=== PATIENT | male | born 1955 | race Caucasian/White ===

== ENCOUNTER 2024-04-13 19:38 | Inpatient (IN) ==
[2024-04-13] MEDS: SODIUM CHLORIDE 0.9% 1,000 ML IV SCH (20:59)
[2024-04-13 21:17] LABS: Alanine Aminotransferase 34 U/L (7-52); Albumin Level 3.9 gm/dl (3.4-5.0); Alkaline Phosphatase 81 U/L (34-104); Anion Gap 8 (3-11); Aspartate Aminotransferase 14 U/L (13-39); BUN Creatinine Ratio 22.4 (10-20); Bilirubin Direct 0.1 mg/dl (0-0.2); Bilirubin,Total 0.3 mg/dl (0.2-1.0); Blood Urea Nitrogen 50 mg/dl (6-23); Calcium 9.1 mg/dl (8.6-10.3); Carbon Dioxide 25 mmol/L (21-32); Chloride 106 mmol/L (98-107); Creatinine Clr Calc Pharmacy 37.4 ml/min; Est GFR (African American) 34.1 ml/min; Est GFR (Non-African American) 29.4 ml/min; Glucose 106 mg/dl (70-99(Fasting)); Magnesium 1.7 mg/dl (1.7-2.4); Potassium 4.7 mmol/L (3.5-5.1); Sodium 139 mmol/L (136-145); Total Protein 6.4 gm/dl (6.0-8.3)
[2024-04-13 21:23] LABS: Base Excess VBG -2.4 mEq/L; HCO3 VBG 24 mmol/L; Oxygen Saturation VBG < 60.0 %; PCO2 VBG 45 mmHg (38-50); PO2 VBG 28 mmHg; pH VBG 7.33 (7.36-7.41)
[2024-04-13 21:23] LABS: Troponin I High Sensitivity 6.6 pg/ml (0-20)
[2024-04-13 21:36] LABS: Basophils # (auto) 0.07 K/uL (0.00-0.20); Basophils % (auto) 0.8 %; Eosinophils # (auto) 0.55 K/uL (0.00-0.50); Eosinophils % (auto) 6.7 %; Hematocrit (blood only) 30.3 % (42.0-52.0); Immature Granulocytes # (auto) 0.09 K/uL (0.01-0.20); Immature Granulocytes % (auto) 1.1 %; Lymphocytes # (auto) 2.15 K/uL (1.20-3.40); Mean Corpuscular Hemoglobin 25.2 pg (25.0-34.0); Mean Corpuscular Hgb Conc 29.7 g/dL (32.0-36.0); Mean Corpuscular Volume 84.9 fL (80.0-100.0); Mean Platelet Volume 11.3 fL (9.4-12.4); Monocytes # (auto) 0.57 K/uL (0.11-0.59); Monocytes % (auto) 6.9 %; Neutrophils # (auto) 4.83 K/uL (1.40-6.50); Neutrophils % (auto) 58.5 %; Platelet Count 285 K/uL (130-400); RDW Coefficient of Variation 19.8 % (11.5-14.5); RDW Standard Deviation 60.3 fL (36.4-46.3); Red Blood Count 3.57 M/uL (4.70-6.10); White Blood Count 8.26 K/ul (4.8-10.8)
--- NOTE | 2024-04-13 22:03 | Emergency Department Note ---
Impression & Plan Hypotension, Cognitive impairment, Acute encephalopathy, Wound of foot ED Provider Note NAME: MILADYS HURTADO AGE: 68 SEX: M : 1955 ARRIVES VIA: Walk-In INFORMANT: Patient, ED PROVIDER(S): Shoaib Harper MD CHIEF COMPLAINT: Hypotension HPI: This is a 68-year-old male presenting for hypotension. Patient states that he was recently intubated for 2 weeks at another hospital. He notes he has Buerger's disease and has ulcers on his bilateral feet. He notes that today he felt weak and was unable to do what she activities including even walking. He notes that his blood pressure 80/50 and was concerned he had sepsis. Patient otherwise reports no current shortness of breath or chest pain. ROS: See above HPI for pertinent positives & negatives. A total of 10 systems reviewed and were otherwise negative. 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 Patient recently intubated for 2 weeks at outside hospital, comes in after hypotension concern for sepsis. Will IV resuscitate with saline -Patient only requesting IV the ultrasound -Ultrasound IV, 18-gauge placed in the basilic vein on the left upper extremity -Lab work is reviewed showing anemia to 9 with a creatinine of 2.23 -Bedside echo performed at patient's request, showing normal EF, no signs of right ventricular hypertrophy, no pericardial effusion -Overall patient does appear well. He is perseverates on certain facets of his medical care including IV placement, wound culture. 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 Overall he appears well with reassuring vital signs after fluid replacement. As patient recently had intubation for unknown reasons at outside hospital, there is clinical concern for possible sepsis. -Chest Xray independently interpreted by me showing no pneumothorax, focal opacity, or pleural effusions. -Blood culture sent -Will admit for further workup as well as his hypotension initially. Differential diagnosis: Sepsis, osteomyelitis of the left foot, anemia, pneumonia ER treatment provided: See below Diagnostics interpreted by me: ECG: ECG independently interpreted by me with normal sinus rhythm, rate of 76, left axis deviation normal [place], normal QRS, normal QTc, no ST segment elevations consistent with STEMI criteria Cardiac Monitoring: An order was placed for continuous cardiac monitoring. The monitor shows a rate of 62 with sinus rhythm. Laboratory studies: As stated above and show below. Imaging studies: See below. Past Med/Surg History Problem List (Updated 04/15/24 @ 10:59 by Shoaib Harper MD) Wound of foot (Acute) Hypotension (Acute) ARNOL (acute kidney injury) Ulcer of foot Vitamin D deficiency Gait disturbance Acute encephalopathy (Acute) Cognitive impairment (Acute) Hip pain, bilateral Lumbar radiculopathy Lumbar radicular pain Lymphoma Weakness of both lower extremities Cramps of lower extremity Fatigue Diabetic neuropathy Idiopathic polyneuropathy Depression HTN (hypertension) Femoral neuropathy of right lower extremity Lumbar degenerative disc disease Surgical History S/P cervical spinal fusion History of cardiac cath History of total right knee replacement Social History Smoking Status: Unknown if ever smoked Second Hand Exposure: No; Do You Dip or Chew Tobacco: No; Tobacco Cessation Education Requested by Patient: No Hx Alcohol Use: No Hx Substance Use: No Preferred Language: Portuguese Communication Ability: Effective 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: No Beliefs That Will Affect Care: None Current Living Situation: Alone Other Information That Helps Us Care for You: No Feels Safe at Home: Yes Assistive Devices: Cane, Glasses, Hospital Bed and Walker Allergies Allergies Allergy/AdvReac Type Severity Reaction Status Date / Time No Known Allergies Allergy Verified 01/17/22 12:48 Home Meds Home Medications Medication Instructions Recorded Confirmed atorvastatin 80 mg tablet 80 mg PO HS 09/17/22 04/14/24 clonazepam 2 mg tablet 1 mg PO TID PRN Anxiety 09/17/22 04/14/24 lisinopril 20 mg tablet 20 mg PO DAILY 09/17/22 04/14/24 metformin 500 mg tablet,extended 1,000 mg PO BIDM 09/17/22 04/14/24 release 24 hr finasteride 5 mg tablet 5 mg PO DAILY 04/13/24 04/14/24 amlodipine 5 mg tablet 5 mg PO DAILY 04/14/24 04/14/24 cyclobenzaprine 10 mg tablet 10 mg PO Q8 PRN muscle spasm 04/14/24 04/14/24 dextroamphetamine-amphetamine 30 30 mg PO DAILY 04/14/24 04/14/24 mg tablet docusate sodium 100 mg capsule 100 mg PO BID 04/14/24 04/14/24 gabapentin 400 mg capsule 400 mg PO Q8 04/14/24 04/14/24 heparin (porcine) 5,000 unit/mL 5,000 unit subcut Q8H 04/14/24 04/14/24 injection syringe levetiracetam 500 mg tablet 500 mg PO Q12H 04/14/24 04/14/24 melatonin 3 mg tablet 6 mg PO HS 04/14/24 04/14/24 pantoprazole 40 mg tablet,delayed 40 mg PO DAILYBB 04/14/24 04/14/24 release quetiapine 50 mg tablet (Seroquel) 50 mg PO Q12 04/14/24 04/14/24 tamsulosin 0.4 mg capsule 0.4 mg PO HS 04/14/24 04/14/24 Previous Rx's Medication Instructions Recorded atenolol 50 mg tablet 50 mg PO DAILY #30 tabs 09/05/20 venlafaxine 150 mg 150 mg PO DAILY #30 caps 09/05/20 capsule,extended release 24 hr (Effexor XR) Wheelchair (Manual) (Manual #1 ea 10/23/21 Wheelchair) Results & Data (ED) Vital Signs Vital Signs - 24 hr 04/13/24 19:46 04/13/24 20:04 04/13/24 20:04 Temperature 36.8 C Temperature Source Oral Pulse Rate 90 Pulse Rate [Apical] 80 Respiratory Rate 20 17 Respiratory Effort / Characteristics Non-Labored Spontaneous Respiratory Depth Normal Respiratory Pattern Regular Blood Pressure 89/62 L Blood Pressure [Right Arm] 106/69 Blood Pressure Mean 71 Blood Pressure Mean [Right Arm] 81 Pulse Oximetry 98 97 97 Oxygen Delivery Method Room Air Room Air Sepsis Recent Fever Within 48 Hours Yes Sepsis New/Unexplained Change in Mental Status No Sepsis Action Taken by Nursing No Action Required 04/13/24 20:15 04/13/24 20:24 04/13/24 21:03 Temperature Temperature Source Pulse Rate 79 83 74 Pulse Rate [Apical] Respiratory Rate 28 H 21 Respiratory Effort / Characteristics Respiratory Depth Respiratory Pattern Blood Pressure 108/61 Blood Pressure [Right Arm] Blood Pressure Mean 76 Blood Pressure Mean [Right Arm] Pulse Oximetry Oxygen Delivery Method Sepsis Recent Fever Within 48 Hours Sepsis New/Unexplained Change in Mental Status Sepsis Action Taken by Nursing 04/13/24 21:21 04/13/24 21:48 04/13/24 21:51 Temperature Temperature Source Pulse Rate 73 83 83 Pulse Rate [Apical] Respiratory Rate 17 23 21 Respiratory Effort / Characteristics Respiratory Depth Respiratory Pattern Blood Pressure Blood Pressure [Right Arm] Blood Pressure Mean Blood Pressure Mean [Right Arm] Pulse Oximetry Oxygen Delivery Method Sepsis Recent Fever Within 48 Hours Sepsis New/Unexplained Change in Mental Status Sepsis Action Taken by Nursing Laboratory Data 04/15/24 09:28 04/15/24 09:28 Lab Results 04/13/24 04/13/24 04/13/24 Range/Units 20:39 20:55 22:26 WBC 8.26 (4.8-10.8) K/ul RBC 3.57 L (4.70-6.10) M/uL Hgb 9.0 L (14.0-18.0) g/dl Hct 30.3 L (42.0-52.0) % MCV 84.9 (80.0-100.0) fL MCH 25.2 (25.0-34.0) pg MCHC 29.7 L (32.0-36.0) g/dL RDW Std Deviation 60.3 H (36.4-46.3) fL RDW Coeff of Adebayo 19.8 H (11.5-14.5) % Plt Count 285 (130-400) K/uL MPV 11.3 (9.4-12.4) fL Immature Gran % (Auto) 1.1 % Neut % (Auto) 58.5 % Lymph % (Auto) 26.0 % [place] % (Auto) 6.9 % Eos % (Auto) 6.7 % Baso % (Auto) 0.8 % Neut # (Auto) 4.83 (1.40-6.50) K/uL Lymph # (Auto) 2.15 (1.20-3.40) K/uL [place] # (Auto) 0.57 (0.11-0.59) K/uL Eos # (Auto) 0.55 H (0.00-0.50) K/uL Baso # (Auto) 0.07 (0.00-0.20) K/uL Immature Gran # (Auto) 0.09 (0.01-0.20) K/uL VBG pH 7.33 L (7.36-7.41) VBG pCO2 45 (38-50) mmHg VBG pO2 28 mmHg VBG HCO3 24 mmol/L VBG O2 Saturation < 60.0 % VBG Base Excess -2.4 mEq/L Sodium 139 (136-145) mmol/L Potassium 4.7 (3.5-5.1) mmol/L Chloride 106 (98-107) mmol/L Carbon Dioxide 25 (21-32) mmol/L Anion Gap 8 (3-11) BUN 50 H (6-23) mg/dl Creatinine 2.23 H (0.6-1.4) mg/dl Est Cr Clr Drug Dosing 37.4 ml/min Est GFR ( Amer) 34.1 ml/min Est GFR (Non-Af Amer) 29.4 ml/min BUN/Creatinine Ratio 22.4 H (10-20) Glucose 106 H (70-99(Fasting)) mg/dl Lactate 0.9 (0.4-2.0) mmol/L Calcium 9.1 (8.6-10.3) mg/dl Phosphorus 4.5 (2.5-4.9) mg/dl Magnesium 1.7 (1.7-2.4) mg/dl Total Bilirubin 0.3 (0.2-1.0) mg/dl Direct Bilirubin 0.1 (0-0.2) mg/dl AST 14 (13-39) U/L ALT 34 (7-52) U/L Alkaline Phosphatase 81 (34-104) U/L Troponin I High Sens 6.6 (0-20) pg/ml C-Reactive Protein < 0.50 (0-0.5) mg/dl Total Protein 6.4 (6.0-8.3) gm/dl Albumin 3.9 (3.4-5.0) gm/dl Procalcitonin 0.08 (0-0.5) ng/ml TSH 4.502 H (0.300-4.500) uIu/ml Free T4 0.93 (0.61-1.60) ng/dl Urine Color Yellow Urine Appearance Clear (Clear) Urine pH 5.5 (4.5-7.5) Ur Specific [place] 1.010 (1.000-1.030) Urine Protein Negative (Negative) Urine Glucose (UA) Negative (Negative) Urine Ketones Negative (Negative) Urine Blood Negative (Negative) Urine Nitrite Negative (Negative) Urine Bilirubin Negative (Negative) Urine Urobilinogen Negative (Negative) Ur Leukocyte Esterase Negative (Negative) Administered Medications Acetaminophen (Acetaminophen 325 Mg Tab) 650 mg PO Q4H PRN PRN Reason: Pain or Fever Stop: 05/14/24 01:24 Last Admin: 04/14/24 13:10 Dose: 650 mg Documented By: DEBORAH Amphetamine/Dextroamphetamine (Dextroamphetamine/Amphetamine Ir 10 Mg Tab) 30 mg PO BID [facility] Stop: 04/28/24 08:59 Last Admin: 04/15/24 10:20 Dose: Not Given Documented By: Admin: 04/14/24 19:56 Dose: Not Given Documented By: Admin: 04/14/24 08:29 Dose: Not Given Documented By: DEBORAH Atorvastatin Calcium (Atorvastatin 40 Mg Tab) 80 mg PO HS [facility] Stop: 05/14/24 20:59 Last Admin: 04/14/24 19:57 Dose: 80 mg Documented By: LUZ Clonazepam (Clonazepam 1 Mg Tab) 1 mg PO TID PRN PRN Reason: Anxiety Stop: 05/14/24 06:18 Last Admin: 04/14/24 20:27 Dose: 1 mg Documented By: LUZ Finasteride (Finasteride 5 Mg Tab) 5 mg PO DAILY JUDITH Stop: 05/14/24 08:59 Last Admin: 04/15/24 10:19 Dose: 5 mg Documented By: Admin: 04/14/24 08:29 Dose: Not Given Documented By: KONGR Gabapentin (Gabapentin 100 Mg Cap) 200 mg PO Q8 JUDITH Stop: 05/14/24 13:59 Last Admin: 04/15/24 05:11 Dose: 200 mg Documented By: Admin: 04/14/24 21:06 Dose: 200 mg Documented By: Admin: 04/14/24 13:10 Dose: 200 mg Documented By: KONGR Heparin Sodium (Porcine) (Heparin Sod 5,000 Unit/0.5 Ml Vial) 5,000 units SQ Q8H JUDITH Stop: 05/14/24 06:59 Last Admin: 04/15/24 05:11 Dose: 5,000 units Documented By: Admin: 04/14/24 21:05 Dose: 5,000 units Documented By: Admin: 04/14/24 14:47 Dose: Not Given Documented By: Admin: 04/14/24 08:28 Dose: 5,000 units Documented By: DEBORAH Insulin Aspart (Insulin Aspart Per Unit Charge) 0 units SC ACHS JUDITH Stop: 05/14/24 16:29 Last Admin: 04/15/24 10:11 Dose: 1 units Documented By: CODY Co-signed By: MARY Admin: 04/14/24 21:10 Dose: Not Given Documented By: LUZ Co-signed By: CHANEL Admin: 04/14/24 17:43 Dose: Not Given Documented By: DEBORAH Levetiracetam (Levetiracetam 500 Mg Tab) 500 mg PO Q12H JUDITH Stop: 05/14/24 08:59 Last Admin: 04/15/24 10:19 Dose: 500 mg Documented By: Admin: 04/14/24 19:57 Dose: 500 mg Documented By: Admin: 04/14/24 08:29 Dose: 500 mg Documented By: DEBORAH Melatonin (Melatonin 3 Mg Tab) 6 mg PO HS JUDITH Stop: 05/14/24 20:59 Last Admin: 04/14/24 19:57 Dose: 6 mg Documented By: LUZ Pantoprazole Sodium (Pantoprazole 40 Mg Tab) 40 mg PO DAILYBB JUDITH Stop: 05/14/24 06:29 Last Admin: 04/15/24 05:11 Dose: 40 mg Documented By: Admin: 04/14/24 08:29 Dose: 40 mg Documented By: DEBORAH Quetiapine Fumarate (Quetiapine Fumarate 25 Mg Tablet) 50 mg PO Q12 JUDITH Stop: 05/14/24 08:59 Last Admin: 04/15/24 10:20 Dose: Not Given Documented By: Admin: 04/14/24 19:58 Dose: 50 mg Documented By: Admin: 04/14/24 08:29 Dose: Not Given Documented By: DEBORAH Tamsulosin HCl (Tamsulosin Hcl 0.4 Mg Cap) 0.4 mg PO HS JUDITH Stop: 05/14/24 20:59 Last Admin: 04/14/24 19:57 Dose: 0.4 mg Documented By: LUZ Venlafaxine HCl (Venlafaxine Hcl Xr 150 Mg Capxr) 150 mg PO DAILY JUDITH Stop: 05/14/24 08:59 Last Admin: 04/15/24 10:22 Dose: 150 mg Documented By: Admin: 04/14/24 08:29 Dose: 150 mg Documented By: DEBORAH Discontinued Medications Diphenhydramine HCl (Diphenhydramine 50 Mg/Ml Vial) 25 mg IV NOW STA Stop: 04/14/24 20:12 Last Admin: 04/14/24 20:27 Dose: 25 mg Documented By: LUZ Sodium Chloride (Nss) 1,000 mls @ 999 mls/hr IV .Q1H1M JUDITH Stop: 04/13/24 21:00 Last Infusion: 04/13/24 22:00 Dose: Infused Documented By: Admin: 04/13/24 20:59 Dose: 999 mls/hr Documented By: ERNIE Magnesium Sulfate/Dextrose (Magnesium Sulfate / D5w) 1 gm in 100 mls @ 100 mls/hr IV NOW STA Stop: 04/13/24 23:31 Last Infusion: 04/14/24 02:39 Dose: Infused Documented By: Admin: 04/13/24 23:25 Dose: 100 mls/hr Documented By: ERNIE Vancomycin HCl 1,750 mg/ (Sodium Chloride) 535 mls @ 200 mls/hr IV NOW STA Stop: 04/14/24 20:24 Last Infusion: 04/14/24 20:45 Dose: Infused Documented By: Admin: 04/14/24 18:03 Dose: 200 mls/hr Documented By: CWR Discharge Plan Visit Data Chief Complaint: Weakness ED Provider: Shoaib Harper Discharge Problem: Hypotension, Cognitive impairment, Acute encephalopathy, Wound of foot Patient Disposition: Admitted As Inpatient Discharge Instructions Interventions: ED Discharge Assessment Last Done: 04/14/24 01:08
[2024-04-13 22:42] LABS: Appearance Urine Clear (Clear); Bilirubin Urine Negative (Negative); Blood Urine Negative (Negative); Color Urine Yellow; Glucose Urine UA Negative (Negative); Ketones Urine Negative (Negative); Leukocyte Esterase Urine Negative (Negative); Nitrite Urine Negative (Negative); Protein Urine Negative (Negative); Urobilinogen Urine Negative (Negative); pH Urine 5.5 (4.5-7.5)
[2024-04-13 22:51] LABS: Phosphorus 4.5 mg/dl (2.5-4.9)
[2024-04-13 23:07] LABS: Thyroid Stimulating Hormone 4.502 uIu/ml (0.300-4.500)
[2024-04-13 23:22] LABS: C Reactive Protein < 0.50 mg/dl (0-0.5)
[2024-04-13] MEDS: MAGNESIUM SULFATE / D5W 1 GM/100 ML BAG IV STA (23:25)
--- NOTE | 2024-04-13 23:26 | History & Physical Report ---
Date of Service April 13, 2024 Assessment & Plan (1) Ulcer of foot: Plan: Patient reports he has history of Buerger's Disease causing his foot ulcerations, multiple amputations in the past. He is concerned for infection of left foot ulcer. Per my evaluation the tissue appears to be healthy at the dorsum - no purulence, no fluctuance. His labs do not suggest infection [id number] - including a normal WBC count and a normal procalcitonin -Consider Podiatry consultation -Will hold off on antibiotics for now (2) HTN (hypertension): Plan: Patient hypotensive on arrival. Now improved following IVF -Hold Amlodipine, Lisinopril and Atenolol -Monitor (3) ARNOL (acute kidney injury): Plan: -Decrease Gabapentin from 400mg po TID to 200mg po TID -Gentle IVF -Renal dosing where needed -Avoid nephrotoxic agents Plan Hyperlipidemia - chronic -Continue Atorvastatin Anxiety - chronic -Continue Clonazepam PRN anxiety with caution - can induce delirium - patient appears to be somewhat confused at present Seizures -Continue Keppra 500mg po BID BPH -Continue Proscar and Flomax History of Present Illness Chief Complaint: c/o hypotension, weakness Primary Care Provider: Anjum Still MD Abby Thompson is a 68yo male with history of HTN, Polyneuropathy and Buerger's disease (I believe this is self diagnosed) presenting with weakness, ambulatory dysfunction and decreased blood pressure. Patient was recently admitted to [facility] when he presented with acute hypoxic respiratory failure and septic shock secondary to Covid-19, possible MRSA PNA. (Requesting records). He was ultimately discharged to [facility]. He has had some generalized weakness and ambulatory dysfunction that started on 04/13/24 around 14:00. Has some ulcers on his left foot. He reports that a couple of days ago he cleaned the ulcer with hydrogen peroxide and debrided it himself. He denies fever, chills, cough, SOB, abdominal pain, nausea, vomiting He has chronic diarrhea which is stable Some poor appetite and decreased oral intake Patient requested multiple times that his foot ulcer be cultured - requested thi s of ER nurse, ER Provider as well as myself multiple times. The wound is not purulent. Allergies Allergy/AdvReac Type Severity Reaction Status Date / Time No Known Allergies Allergy Verified 01/17/22 12:48 Home Medications Medication Instructions Recorded Confirmed Type atenolol 50 mg tablet 50 mg PO DAILY #30 tabs 09/05/20 04/14/24 Rx venlafaxine 150 mg 150 mg PO DAILY #30 caps 09/05/20 04/14/24 Rx capsule,extended release 24 hr (Effexor XR) Wheelchair (Manual) (Manual #1 ea 10/23/21 04/14/24 Rx Wheelchair) atorvastatin 80 mg tablet 80 mg PO HS 09/17/22 04/14/24 History clonazepam 2 mg tablet 1 mg PO TID PRN Anxiety 09/17/22 04/14/24 History lisinopril 20 mg tablet 20 mg PO DAILY 09/17/22 04/14/24 History metformin 500 mg tablet,extended 1,000 mg PO BIDM 09/17/22 04/14/24 History release 24 hr finasteride 5 mg tablet 5 mg PO DAILY 04/13/24 04/14/24 History amlodipine 5 mg tablet 5 mg PO DAILY 04/14/24 04/14/24 History cyclobenzaprine 10 mg tablet 10 mg PO Q8 PRN muscle spasm 04/14/24 04/14/24 History dextroamphetamine-amphetamine 30 30 mg PO DAILY 04/14/24 04/14/24 History mg tablet docusate sodium 100 mg capsule 100 mg PO BID 04/14/24 04/14/24 History gabapentin 400 mg capsule 400 mg PO Q8 04/14/24 04/14/24 History heparin (porcine) 5,000 unit/mL 5,000 unit subcut Q8H 04/14/24 04/14/24 History injection syringe levetiracetam 500 mg tablet 500 mg PO Q12H 04/14/24 04/14/24 History melatonin 3 mg tablet 6 mg PO HS 04/14/24 04/14/24 History pantoprazole 40 mg tablet,delayed 40 mg PO DAILYBB 04/14/24 04/14/24 History release quetiapine 50 mg tablet (Seroquel) 50 mg PO Q12 04/14/24 04/14/24 History tamsulosin 0.4 mg capsule 0.4 mg PO HS 04/14/24 04/14/24 History Past Med/Surg History Problem List (Updated 04/14/24 @ 06:22 by Patience Del Rio DO) ARNOL (acute kidney injury) Ulcer of foot Vitamin D deficiency Gait disturbance Acute encephalopathy Cognitive impairment Hip pain, bilateral Lumbar radiculopathy Lumbar radicular pain Lymphoma Weakness of both lower extremities Cramps of lower extremity Fatigue Diabetic neuropathy Idiopathic polyneuropathy Depression HTN (hypertension) Femoral neuropathy of right lower extremity Lumbar degenerative disc disease Surgical History S/P cervical spinal fusion History of cardiac cath History of total right knee replacement Social History Smoking Status: Unknown if ever smoked Second Hand Exposure: No; Do You Dip or Chew Tobacco: No; Tobacco Cessation Education Requested by Patient: No Hx Alcohol Use: No Hx Substance Use: No Preferred Language: Macedonian Communication Ability: Effective 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 Beliefs That Will Affect Care: None Current Living Situation: Alone Other Information That Helps Us Care for You: No Feels Safe at Home: Yes Assistive Devices: Cane, Glasses, Hospital Bed and Walker Review of Systems Review of Systems: All systems reviewed & are unremarkable except as noted in HPI & below Physical Exam Physical Exam: General: patient chronically ill in appearance, oriented x 3 Skin: warm, dry, intact, no rashes or lesions, eschar on right cheek HEENT: NC/AT, PERRL, EOMI, anicteric sclera, conjunctiva without injection, external ear normal to inspection and nontender, nares patent, drymucus membranes, dentition intact, no oropharyngeal lesions, neck supple, trachea midline, no LAD, no thyromegaly, no JVD Heart: +S1/S2, regular, no m/r/g Lungs: equal air entry bilaterally, no rales/rhonchi/wheezes Abd: +BS, soft, NT/ND, no masses/organomegaly/ascites Ext: warm, 2+ pulses in UE/LE bilaterally, no clubbing/cyanosis or edema Neuro: nonfocal, patient AA&O x 4, speech intact, no facial droop, moving all extremities on command with equal strength 5/5 shallow based lesion on dorsal surface of left foot, no bleeding/drainage, no purulence, no fluctuance, area palpated with no expressible fluid Results & Data Results & Data Vital Signs (Past 12 Hours) Vital Signs Temp Pulse Pulse Resp BP BP Pulse Ox 04/13/24 22:45 76 13 04/13/24 22:31 93 H 101/78 04/13/24 22:30 76 16 101/78 94 04/13/24 22:00 87 20 121/78 04/13/24 22:00 87 18 111/90 04/13/24 21:51 83 21 04/13/24 21:48 83 23 04/13/24 21:21 73 17 04/13/24 21:03 74 21 108/61 04/13/24 20:24 83 04/13/24 20:15 79 28 H 04/13/24 20:04 80 17 106/69 97 04/13/24 20:04 97 04/13/24 19:46 36.8 C 90 20 89/62 L 98 O2 Del Method 04/13/24 22:45 04/13/24 22:31 04/13/24 22:30 Room Air 04/13/24 22:00 04/13/24 22:00 04/13/24 21:51 04/13/24 21:48 04/13/24 21:21 04/13/24 21:03 04/13/24 20:24 04/13/24 20:15 04/13/24 20:04 04/13/24 20:04 Room Air 04/13/24 19:46 Room Air Laboratory Results Laboratory Results WBC 8.26 K/ul (4.8-10.8) 04/13/24 20:39 RBC 3.57 M/uL (4.70-6.10) L 04/13/24 20:39 Hgb 9.0 g/dl (14.0-18.0) L 04/13/24 20:39 Hct 30.3 % (42.0-52.0) L 04/13/24 20:39 MCV 84.9 fL (80.0-100.0) 04/13/24 20:39 MCH 25.2 pg (25.0-34.0) 04/13/24 20:39 MCHC 29.7 g/dL (32.0-36.0) L 04/13/24 20:39 RDW Std Deviation 60.3 fL (36.4-46.3) H 04/13/24 20:39 RDW Coeff of Adebayo 19.8 % (11.5-14.5) H 04/13/24 20:39 Plt Count 285 K/uL (130-400) 04/13/24 20:39 MPV 11.3 fL (9.4-12.4) 04/13/24 20:39 Immature Gran % (Auto) 1.1 % 04/13/24 20:39 Neut % (Auto) 58.5 % 04/13/24 20:39 Lymph % (Auto) 26.0 % 04/13/24 20:39 Lipscomb % (Auto) 6.9 % 04/13/24 20:39 Eos % (Auto) 6.7 % 04/13/24 20:39 Baso % (Auto) 0.8 % 04/13/24 20:39 Neut # (Auto) 4.83 K/uL (1.40-6.50) 04/13/24 20:39 Lymph # (Auto) 2.15 K/uL (1.20-3.40) 04/13/24 20:39 Lipscomb # (Auto) 0.57 K/uL (0.11-0.59) 04/13/24 20:39 Eos # (Auto) 0.55 K/uL (0.00-0.50) H 04/13/24 20:39 Baso # (Auto) 0.07 K/uL (0.00-0.20) 04/13/24 20:39 Immature Gran # (Auto) 0.09 K/uL (0.01-0.20) 04/13/24 20:39 VBG pH 7.33 (7.36-7.41) L 04/13/24 20:55 VBG pCO2 45 mmHg (38-50) 04/13/24 20:55 VBG pO2 28 mmHg 04/13/24 20:55 VBG HCO3 24 mmol/L 04/13/24 20:55 VBG O2 Saturation < 60.0 % 04/13/24 20:55 VBG Base Excess -2.4 mEq/L 04/13/24 20:55 Sodium 139 mmol/L (136-145) 04/13/24 20:39 Potassium 4.7 mmol/L (3.5-5.1) 04/13/24 20:39 Chloride 106 mmol/L (98-107) 04/13/24 20:39 Carbon Dioxide 25 mmol/L (21-32) 04/13/24 20:39 Anion Gap 8 (3-11) 04/13/24 20:39 BUN 50 mg/dl (6-23) H 04/13/24 20:39 Creatinine 2.23 mg/dl (0.6-1.4) H 04/13/24 20:39 Est Cr Clr Drug Dosing 37.4 ml/min 04/13/24 20:39 Est GFR ( Amer) 34.1 ml/min 04/13/24 20:39 Est GFR (Non-Af Amer) 29.4 ml/min 04/13/24 20:39 BUN/Creatinine Ratio 22.4 (10-20) H 04/13/24 20:39 Glucose 106 mg/dl (70-99(Fasting)) H 04/13/24 20:39 Lactate 0.9 mmol/L (0.4-2.0) 04/13/24 20:39 Calcium 9.1 mg/dl (8.6-10.3) 04/13/24 20:39 Phosphorus 4.5 mg/dl (2.5-4.9) 04/13/24 20:39 Magnesium 1.7 mg/dl (1.7-2.4) 04/13/24 20:39 Total Bilirubin 0.3 mg/dl (0.2-1.0) 04/13/24 20:39 Direct Bilirubin 0.1 mg/dl (0-0.2) 04/13/24 20:39 AST 14 U/L (13-39) 04/13/24 20:39 ALT 34 U/L (7-52) 04/13/24 20:39 Alkaline Phosphatase 81 U/L (34-104) 04/13/24 20:39 Troponin I High Sens 6.6 pg/ml (0-20) 04/13/24 20:39 C-Reactive Protein < 0.50 mg/dl (0-0.5) 04/13/24 20:39 Total Protein 6.4 gm/dl (6.0-8.3) 04/13/24 20:39 Albumin 3.9 gm/dl (3.4-5.0) 04/13/24 20:39 Procalcitonin 0.08 ng/ml (0-0.5) 04/13/24 20:39 TSH 4.502 uIu/ml (0.300-4.500) H 04/13/24 20:39 Free T4 0.93 ng/dl (0.61-1.60) 04/13/24 20:39 Urine Color Yellow 04/13/24 22:26 Urine Appearance Clear (Clear) 04/13/24 22:26 Urine pH 5.5 (4.5-7.5) 04/13/24 22:26 Ur Specific [place] 1.010 (1.000-1.030) 04/13/24 22:26 Urine Protein Negative (Negative) 04/13/24 22:26 Urine Glucose (UA) Negative (Negative) 04/13/24 22: Urine Ketones Negative (Negative) 04/13/24 22:26 Urine Blood Negative (Negative) 04/13/24 22:26 Urine Nitrite Negative (Negative) 04/13/24 22: Urine Bilirubin Negative (Negative) 04/13/24 22:26 Urine Urobilinogen Negative (Negative) 04/13/24 22:26 Ur Leukocyte Esterase Negative (Negative) 04/13/24 22:26 SARS-CoV-2, RNA, NAAT NEGATIVE (NEGATIVE) 04/13/24 23:26 Impressions Foot MRI 04/13/24 23:11 Exam(s): MRI LEFT FOOT Without Contrast EXAM: MR Left Lower Extremity Without Intravenous Contrast, Foot CLINICAL HISTORY: Reason for exam: foot pain and ulcer ?osteomyelitis?. TECHNIQUE: Multiplanar magnetic resonance images of the left foot without intravenous contrast. COMPARISON: No relevant prior studies available. FINDINGS: Amputation of the first ray at the first metatarsal. Overlying phlegmonous change and wound/ulcer, consistent with soft tissue infection. No MR evidence of osteomyelitis of the first ray. Moderate edema and periosteal reaction by the second metatarsal head/neck. This has the appearance of a [id number]-[id number] fracture however, given the adjacent wound/ulcer, osteomyelitis cannot be excluded. Severe osteoarthritis of the third MTP. Moderate subcutaneous edema throughout the remaining toes, for which cellulitis is suspected. IMPRESSION: Moderate edema and periosteal reaction by the second metatarsal head/neck. This has the appearance of a wrbsl-ac-pykwzij fracture however, given the adjacent wound/ulcer, osteomyelitis cannot be excluded. Electronically signed by: Rajeev Partida MD 04/14/24 03:53 AM PG Care Time/CCT Total # of Minutes Spent Total Time Spent with Patient: Total time spent is greater than 50% in coordination of care (as documented) at patient's floor/unit and/or counseling patient: Coding Level of Care Code 53902 INT INP/OBS CARE 3/75MIN Diagnoses Ulcer of foot L97.509 HTN (hypertension) I10 ARNOL (acute kidney injury) N17.9
[2024-04-13 23:41] LABS: T4 Free Thyroxine 0.93 ng/dl (0.61-1.60)
[2024-04-14] MEDS ORDERED: ONDANSETRON INJ 2 MG/ML 2 ML VIAL IV PRN (01:25)
--- NOTE | 2024-04-14 03:54 | Magnetic Resonance Report ---
Exam(s): MRI LEFT FOOT Without Contrast EXAM: MR Left Lower Extremity Without Intravenous Contrast, Foot CLINICAL HISTORY: Reason for exam: foot pain and ulcer ?osteomyelitis?. TECHNIQUE: Multiplanar magnetic resonance images of the left foot without intravenous contrast. COMPARISON: No relevant prior studies available. FINDINGS: Amputation of the first ray at the first metatarsal. Overlying phlegmonous change and wound/ulcer, consistent with soft tissue infection. No MR evidence of osteomyelitis of the first ray. Moderate edema and periosteal reaction by the second metatarsal head/neck. This has the appearance of a oobbq-ty-mxgjwts fracture however, given the adjacent wound/ulcer, osteomyelitis cannot be excluded. Severe osteoarthritis of the third MTP. Moderate subcutaneous edema throughout the remaining toes, for which cellulitis is suspected. IMPRESSION: Moderate edema and periosteal reaction by the second metatarsal head/neck. This has the appearance of a ihyhv-it-bxdubji fracture however, given the adjacent wound/ulcer, osteomyelitis cannot be excluded. Electronically signed by: Rajeev Partida MD 04/14/24 03:53 AM
[2024-04-14] MEDS ORDERED: DOCUSATE SODIUM 100 MG CAP PO PRN (06:19)
[2024-04-14] MEDS ORDERED: CYCLOBENZAPRINE HCL 10 MG TAB PO PRN (06:19)
--- NOTE | 2024-04-14 07:07 | XRay Report ---
XR chest 1V portable HISTORY: 68 years-old Male Sepsis COMPARISON: None TECHNIQUE: AP view of the chest FINDINGS: Cervical spinal fusion hardware. Degenerative changes of the shoulders and spine. Heart size is upper limits of normal. Atherosclerosis of the aorta. There is no pneumothorax, or pleural effusion. The l ungs appear clear. IMPRESSION: No acute process. ACT 112: Negative or not required by law. The above report was generated using voice recognition software. It may contain grammatical, syntax o r spelling errors. Electronically signed by: Randy Garcia M.D. 04/14/2024 7:06 AM
[2024-04-14 07:21] LABS: Hematocrit (blood only) 28.4 % (42.0-52.0); Hemoglobin 8.5 g/dl (14.0-18.0); Mean Corpuscular Hemoglobin 25.1 pg (25.0-34.0); Mean Corpuscular Hgb Conc 29.9 g/dL (32.0-36.0); Mean Platelet Volume 11.1 fL (9.4-12.4); Platelet Count 260 K/uL (130-400); RDW Coefficient of Variation 19.6 % (11.5-14.5); Red Blood Count 3.38 M/uL (4.70-6.10); White Blood Count 6.63 K/ul (4.8-10.8)
[2024-04-14 07:38] LABS: BUN Creatinine Ratio 26.4 (10-20); Creatinine Clr Calc Pharmacy 59.5 ml/min; Est GFR (African American) 59.8 ml/min; Est GFR (Non-African American) 51.6 ml/min; Potassium 4.5 mmol/L (3.5-5.1)
[2024-04-14] MEDS: HEPARIN SOD 5,000 UNIT/0.5 ML VIAL SQ SCH (08:28)
[2024-04-14] MEDS: VENLAFAXINE HCL XR 150 MG CAPXR PO SCH (08:29)
[2024-04-14] MEDS: DEXTROAMPHETAMINE/AMPHETAMINE IR 10 MG TAB PO SCH (08:29)
[2024-04-14] MEDS: FINASTERIDE 5 MG TAB PO SCH (08:29)
[2024-04-14] MEDS: levETIRAcetam 500 MG TAB PO SCH (08:29)
[2024-04-14] MEDS: QUEtiapine FUMARATE 25 MG TABLET PO SCH (08:29)
[2024-04-14] MEDS: PANTOprazole 40 MG TAB PO SCH (08:29)
[2024-04-14] MEDS: GABAPENTIN 100 MG CAP PO SCH (13:10)
[2024-04-14] MEDS: ACETAMINOPHEN 325 MG TAB PO PRN (13:10)
--- NOTE | 2024-04-14 14:06 | Hospitalist Progress Note ---
Date of Service April 14, 2024 Assessment & Plan (1) Ulcer of foot: Plan: Patient reports he has history of Buerger's Disease causing his foot ulcerations, multiple amputations in the past. He is concerned for infection of left foot ulcer. Normal WBC count, normal procalcitonin level, normal CRP No fever Wound does not appear infected to me Wound care consulted Podiatry consulted however there is no podiatry service available. Consult orthopedics as the patient is convinced that the wound is infected and should be cultured Patient's blood pressure improved after being on antibiotics (2) HTN (hypertension): Plan: Patient hypotensive on arrival. Now improved following IVF -Continue to hold Amlodipine, Lisinopril and Atenolol at least until blood pressure starts to creep up -Monitor (3) ARNOL (acute kidney injury): Plan: -Decreased Gabapentin from 400mg po TID to 200mg po TID -Renal function improved with IV fluids -Avoid nephrotoxic agents Plan Hyperlipidemia - chronic -Continue Atorvastatin Anxiety - chronic -Continue Clonazepam PRN anxiety with caution - can induce delirium Seizures -Continue Keppra 500mg po BID BPH -Continue Proscar and Flomax Consult PT and OT Admission and Anticipated Discharge Date Admission Date: April 13, 2024 Subjective Patient says he feels better overall. He is happy to know that his kidney function has improved and his blood pressure is improved as well. However he is convinced that he has an infected left foot ulcer and would like a wound culture as well as blood culture. He was assured that his procalcitonin level was normal, CRP was normal, WBC count was normal. Hypotension is resolved with IV fluids alone. Review of Systems Review of Systems: All systems reviewed & are unremarkable except as noted in Subjective Physical Exam Physical Exam: General: Awake, conversant Heart: S1, S2/regular rate and rhythm, no murmur rubs or gallops Lungs: Clear to auscultation bilaterally. Normal effort Abdomen: Soft/nontender/nondistended. No hepatosplenomegaly Extremities: No clubbing/cyanosis. No edema. Shallow scabbed lesion on the plantar surface of the left foot. With no purulence, fluctuance, bogginess. Behavior: Appropriate, cooperative Results & Data Results & Data Vital Signs (Past 12 Hours) Vital Signs Temp Pulse Resp BP Pulse Ox O2 Del Method 04/14/24 07:50 36.4 C 80 16 121/70 98 Room Air Laboratory Results Abnormal lab results 04/13/24 04/13/24 04/14/24 Range/Units 20:39 20:55 06:35 RBC 3.57 L 3.38 L (4.70-6.10) M/uL Hgb 9.0 L 8.5 L (14.0-18.0) g/dl Hct 30.3 L 28.4 L (42.0-52.0) % MCHC 29.7 L 29.9 L (32.0-36.0) g/dL RDW Std Deviation 60.3 H 59.0 H (36.4-46.3) fL RDW Coeff of Adebayo 19.8 H 19.6 H (11.5-14.5) % Eos # (Auto) 0.55 H (0.00-0.50) K/uL VBG pH 7.33 L (7.36-7.41) Chloride 111 H (98-107) mmol/L BUN 50 H 37 H (6-23) mg/dl Creatinine 2.23 H (0.6-1.4) mg/dl BUN/Creatinine Ratio 22.4 H 26.4 H (10-20) Glucose 106 H 148 H (70-99(Fasting)) mg/dl TSH 4.502 H (0.300-4.500) uIu/ml PG Care Time/CCT Total # of Minutes Spent Total Time Spent with Patient: Total time spent is greater than 50% in coordination of care (as documented) at patient's floor/unit and/or counseling patient: Coding Level of Care Code 93575 SUB INP/OBS CARE 235MIN Diagnoses Ulcer of foot L97.509 HTN (hypertension) I10 ARNOL (acute kidney injury) N17.9
[2024-04-14] MEDS ORDERED: GLUCOSE 10 TAB/TUBE PO PRN (14:29)
[2024-04-14] MEDS ORDERED: DEXTROSE 50% 50 ML SYRINGE IV PRN (14:29)
[2024-04-14] MEDS ORDERED: GLUCOSE 40% GEL 15 GM TUBE PO PRN (14:29)
[2024-04-14] MEDS ORDERED: CARBOHYDRATES FOR HYPOGLYCEMIA PO PRN (14:29)
[2024-04-14] MEDS ORDERED: GLUCAGON FOR INJ 1 MG VIAL SQ PRN (14:29)
--- NOTE | 2024-04-14 15:59 | Electrocardiogram Report ---
Test Reason : Blood Pressure : */* mmHG Vent. Rate : 76 BPM Atrial Rate : 76 BPM P-R Int : 158 ms QRS Dur : 88 ms QT Int : 364 ms P-R-T Axes : 60 -31 40 degrees QTcB Int : 409 ms Normal sinus rhythm Left axis deviation Abnormal ECG No previous ECGs available Confirmed by Justo Donis ([id number]) on 04/14/2024 3:59:43 PM Referred By: Anjum Still Confirmed By: Justo Donis
--- NOTE | 2024-04-14 17:10 | Orthopedic Consultation ---
Date of Consultation April 14, 2024 Assessment & Plan (1) Ulcer of foot: Left foot Ulcer, concern for 2nd Metatarsal Osteomyelitis Discussed culturing the wound, with no active drainage likely to grow skin abena. Cx obtained in sterile fashion. Patient also insisted on repeating Blood Cx. Discussed starting broad spectrum Abx, like Vancomycin. Will likely need follow- up with ID in [place] for suppressive therapy. Continue with covering when ambulating. Warm peroxide:NS soaks Will consult Wound Care Team Continue care per primary service. 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 Reports having sepsis in the past and has been treated by ID in [place]. Has been frustrated with medical care and has been taking care of his feet on his own. Reports he has had an ulcer on his left foot and was not feeling well and noted an odor to his foot. He self treated with peroxide soak before coming to the hospital. Allergies Allergy/AdvReac Type Severity Reaction Status Date / Time No Known Allergies Allergy Verified 01/17/22 12:48 Home Medications Medication Instructions Recorded Confirmed Type atenolol 50 mg tablet 50 mg PO DAILY #30 tabs 09/05/20 04/14/24 Rx venlafaxine 150 mg 150 mg PO DAILY #30 caps 09/05/20 04/14/24 Rx capsule,extended release 24 hr (Effexor XR) Wheelchair (Manual) (Manual #1 ea 10/23/21 04/14/24 Rx Wheelchair) atorvastatin 80 mg tablet 80 mg PO HS 09/17/22 04/14/24 History clonazepam 2 mg tablet 1 mg PO TID PRN Anxiety 09/17/22 04/14/24 History lisinopril 20 mg tablet 20 mg PO DAILY 09/17/22 04/14/24 History metformin 500 mg tablet,extended 1,000 mg PO BIDM 09/17/22 04/14/24 History release 24 hr finasteride 5 mg tablet 5 mg PO DAILY 04/13/24 04/14/24 History amlodipine 5 mg tablet 5 mg PO DAILY 04/14/24 04/14/24 History cyclobenzaprine 10 mg tablet 10 mg PO Q8 PRN muscle spasm 04/14/24 04/14/24 History dextroamphetamine-amphetamine 30 30 mg PO DAILY 04/14/24 04/14/24 History mg tablet docusate sodium 100 mg capsule 100 mg PO BID 04/14/24 04/14/24 History gabapentin 400 mg capsule 400 mg PO Q8 04/14/24 04/14/24 History heparin (porcine) 5,000 unit/mL 5,000 unit subcut Q8H 04/14/24 04/14/24 History injection syringe levetiracetam 500 mg tablet 500 mg PO Q12H 04/14/24 04/14/24 History melatonin 3 mg tablet 6 mg PO HS 04/14/24 04/14/24 History pantoprazole 40 mg tablet,delayed 40 mg PO DAILYBB 04/14/24 04/14/24 History release quetiapine 50 mg tablet (Seroquel) 50 mg PO Q12 04/14/24 04/14/24 History tamsulosin 0.4 mg capsule 0.4 mg PO HS 04/14/24 04/14/24 History Patient History Surgical History S/P cervical spinal fusion History of cardiac cath History of total right knee replacement Social History Smoking Status: Unknown if ever smoked Second Hand Exposure: No; Do You Dip or Chew Tobacco: No; Tobacco Cessation Education Requested by Patient: No Hx Alcohol Use: No Hx Substance Use: No Preferred Language: Khmer Communication Ability: Effective 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 BCR < 2sec to the remaining toes. Is able to wiggle toes and ankle. No swelling or erythema. There is dry skin along the ball of the foot. There is an Ulcer over the 4th Metatarsal approximately the size of a quarter. There is no drainage. No palpable fluctuance. Results & Data Vital Signs (Past 12 Hours) Vital Signs Temp Pulse Resp BP Pulse Ox O2 Del Method 04/14/24 14:58 37.1 C 88 16 105/62 96 Room Air 04/14/24 07:50 36.4 C 80 16 121/70 98 Room Air Laboratory Results 04/14/24 04/13/24 04/13/24 Range/Units 06:35 23:26 22:26 WBC 6.63 (4.8-10.8) K/ul RBC 3.38 L (4.70-6.10) M/uL Hgb 8.5 L (14.0-18.0) g/dl Hct 28.4 L (42.0-52.0) % MCV 84.0 (80.0-100.0) fL MCH 25.1 (25.0-34.0) pg MCHC 29.9 L (32.0-36.0) g/dL RDW Std Deviation 59.0 H (36.4-46.3) fL RDW Coeff of Adebayo 19.6 H (11.5-14.5) % Plt Count 260 (130-400) K/uL MPV 11.1 (9.4-12.4) fL Immature Gran % (Auto) % Neut % (Auto) % Lymph % (Auto) % [place] % (Auto) % Eos % (Auto) % Baso % (Auto) % Neut # (Auto) (1.40-6.50) K/uL Lymph # (Auto) (1.20-3.40) K/uL [place] # (Auto) (0.11-0.59) K/uL Eos # (Auto) (0.00-0.50) K/uL Baso # (Auto) (0.00-0.20) K/uL Immature Gran # (Auto) (0.01-0.20) K/uL VBG pH (7.36-7.41) VBG pCO2 (38-50) mmHg VBG pO2 mmHg VBG HCO3 mmol/L VBG O2 Saturation % VBG Base Excess mEq/L Sodium 140 (136-145) mmol/L Potassium 4.5 (3.5-5.1) mmol/L Chloride 111 H (98-107) mmol/L Carbon Dioxide 22 (21-32) mmol/L Anion Gap 7 (3-11) BUN 37 H (6-23) mg/dl Creatinine 1.40 D (0.6-1.4) mg/dl Est Cr Clr Drug Dosing 59.5 ml/min Est GFR ( Amer) 59.8 ml/min Est GFR (Non-Af Amer) 51.6 ml/min BUN/Creatinine Ratio 26.4 H (10-20) Glucose 148 H (70-99(Fasting)) mg/dl Lactate (0.4-2.0) mmol/L Calcium 9.0 (8.6-10.3) mg/dl Phosphorus (2.5-4.9) mg/dl Magnesium (1.7-2.4) mg/dl Total Bilirubin (0.2-1.0) mg/dl Direct Bilirubin (0-0.2) mg/dl AST (13-39) U/L ALT (7-52) U/L Alkaline Phosphatase (34-104) U/L Troponin I High Sens (0-20) pg/ml C-Reactive Protein (0-0.5) mg/dl Total Protein (6.0-8.3) gm/dl Albumin (3.4-5.0) gm/dl Procalcitonin (0-0.5) ng/ml TSH (0.300-4.500) uIu/ml Free T4 (0.61-1.60) ng/dl Urine Color Yellow Urine Appearance Clear (Clear) Urine pH 5.5 (4.5-7.5) Ur Specific [place] 1.010 (1.000-1.030) Urine Protein Negative (Negative) Urine Glucose (UA) Negative (Negative) Urine Ketones Negative (Negative) Urine Blood Negative (Negative) Urine Nitrite Negative (Negative) Urine Bilirubin Negative (Negative) Urine Urobilinogen Negative (Negative) Ur Leukocyte Esterase Negative (Negative) SARS-CoV-2, RNA, NAAT NEGATIVE (NEGATIVE) 04/13/24 04/13/24 Range/Units 20:55 20:39 WBC 8.26 (4.8-10.8) K/ul RBC 3.57 L (4.70-6.10) M/uL Hgb 9.0 L (14.0-18.0) g/dl Hct 30.3 L (42.0-52.0) % MCV 84.9 (80.0-100.0) fL MCH 25.2 (25.0-34.0) pg MCHC 29.7 L (32.0-36.0) g/dL RDW Std Deviation 60.3 H (36.4-46.3) fL RDW Coeff of Adebayo 19.8 H (11.5-14.5) % Plt Count 285 (130-400) K/uL MPV 11.3 (9.4-12.4) fL Immature Gran % (Auto) 1.1 % Neut % (Auto) 58.5 % Lymph % (Auto) 26.0 % [place] % (Auto) 6.9 % Eos % (Auto) 6.7 % Baso % (Auto) 0.8 % Neut # (Auto) 4.83 (1.40-6.50) K/uL Lymph # (Auto) 2.15 (1.20-3.40) K/uL [place] # (Auto) 0.57 (0.11-0.59) K/uL Eos # (Auto) 0.55 H (0.00-0.50) K/uL Baso # (Auto) 0.07 (0.00-0.20) K/uL Immature Gran # (Auto) 0.09 (0.01-0.20) K/uL VBG pH 7.33 L (7.36-7.41) VBG pCO2 45 (38-50) mmHg VBG pO2 28 mmHg VBG HCO3 24 mmol/L VBG O2 Saturation < 60.0 % VBG Base Excess -2.4 mEq/L Sodium 139 (136-145) mmol/L Potassium 4.7 (3.5-5.1) mmol/L Chloride 106 (98-107) mmol/L Carbon Dioxide 25 (21-32) mmol/L Anion Gap 8 (3-11) BUN 50 H (6-23) mg/dl Creatinine 2.23 H (0.6-1.4) mg/dl Est Cr Clr Drug Dosing 37.4 ml/min Est GFR ( Amer) 34.1 ml/min Est GFR (Non-Af Amer) 29.4 ml/min BUN/Creatinine Ratio 22.4 H (10-20) Glucose 106 H (70-99(Fasting)) mg/dl Lactate 0.9 (0.4-2.0) mmol/L Calcium 9.1 (8.6-10.3) mg/dl Phosphorus 4.5 (2.5-4.9) mg/dl Magnesium 1.7 (1.7-2.4) mg/dl Total Bilirubin 0.3 (0.2-1.0) mg/dl Direct Bilirubin 0.1 (0-0.2) mg/dl AST 14 (13-39) U/L ALT 34 (7-52) U/L Alkaline Phosphatase 81 (34-104) U/L Troponin I High Sens 6.6 (0-20) pg/ml C-Reactive Protein < 0.50 (0-0.5) mg/dl Total Protein 6.4 (6.0-8.3) gm/dl Albumin 3.9 (3.4-5.0) gm/dl Procalcitonin 0.08 (0-0.5) ng/ml TSH 4.502 H (0.300-4.500) uIu/ml Free T4 0.93 (0.61-1.60) ng/dl Urine Color Urine Appearance (Clear) Urine pH (4.5-7.5) Ur Specific [place] (1.000-1.030) Urine Protein (Negative) Urine Glucose (UA) (Negative) Urine Ketones (Negative) Urine Blood (Negative) Urine Nitrite (Negative) Urine Bilirubin (Negative) Urine Urobilinogen (Negative) Ur Leukocyte Esterase (Negative) SARS-CoV-2, RNA, NAAT (NEGATIVE) Blood Cx Pending Diagnostic Findings Exam(s): MRI LEFT FOOT Without Contrast EXAM: MR Left Lower Extremity Without Intravenous Contrast, Foot CLINICAL HISTORY: Reason for exam: foot pain and ulcer ?osteomyelitis?. TECHNIQUE: Multiplanar magnetic resonance images of the left foot without intravenous contrast. COMPARISON: No relevant prior studies available. FINDINGS: Amputation of the first ray at the first metatarsal. Overlying phlegmonous change and wound/ulcer, consistent with soft tissue infection. No MR evidence of osteomyelitis of the first ray. Moderate edema and periosteal reaction by the second metatarsal head/neck. This has the appearance of a hcxwv-[id number]-[id number] fracture however, given the adjacent wound/ulcer, osteomyelitis cannot be excluded. Severe osteoarthritis of the third MTP. Moderate subcutaneous edema throughout the remaining toes, for which cellulitis is suspected. IMPRESSION: Moderate edema and periosteal reaction by the second metatarsal head/neck. This has the appearance of a [id number]-[id number] fracture however, given the adjacent wound/ulcer, osteomyelitis cannot be excluded. Electronically signed by: Rajeev Partida MD 04/14/24 03:53 AM XR foot LT min 3V routine CLINICAL HISTORY: Fracture TECHNIQUE: 3 views of the right foot were obtained. Comparison: Comparison is made to MRI left foot 04/14/2024 FINDINGS: No fractures are present. Lucency in the left metatarsal head is seen. Chronic appearing deformity of the first metatarsal is noted distally. No soft tissue abnormality is seen. IMPRESSION: No acute fracture is definitely seen. There is lucency about the second metatarsal which may represent osteomyelitis as edema was seen on prior MRI. Clinical correlation is recommended. ACT 112: Negative or not required by law. Electronically signed by: Dwight Orourke M.D. 04/14/2024 7:16 PM
[2024-04-14] MEDS ORDERED: VANCOMYCIN HCL 1,000 MG in SODIUM CHLORIDE 0.9% 250 ML IV STA (17:33)
[2024-04-14] MEDS ORDERED: VANCOMYCIN CONSULT ACTIVE PRN (17:33)
[2024-04-14] MEDS: INSULIN ASPART PER UNIT CHARGE SC SCH (17:43)
[2024-04-14] MEDS: VANCOMYCIN HCL 1,750 MG in SODIUM CHLORIDE 0.9% 500 ML IV STA (18:03)
--- NOTE | 2024-04-14 18:49 | Pharmacy Report ---
Pharmacy PK ABX Note - Date of Service April 14, 2024 - Assessment and Plan Assessment 68 year old M receiving vancomycin for treatment of left foot ulcer. Pertinent microbiologic data includes: blood cultures pending. Day # 1 of antimicrobial therapy. Plan Vancomycin * Loading dose: 1750 mg IV x 1 * Will dose further vancomycin by levels due to ARNOL * Random level ordered for: 04/15/24 with AM labs Pharmacy will continue to follow and will adjust dose/frequency as necessary. Thank you. Pharmacy has transitioned to AUC monitoring for vancomycin. AUC/KAILASH is the preferred PK/PD target and is associated with decreased risk of nephrotoxicity compared to traditional trough targets.
--- NOTE | 2024-04-14 19:18 | XRay Report ---
XR foot LT min 3V routine CLINICAL HISTORY: Fracture TECHNIQUE: 3 views of the right foot were obtained. Comparison: Comparison is made to MRI left foot 04/14/2024 FINDINGS: No fractures are present. Lucency in the left metatarsal head is seen. Chronic appearing deformity of the first metatarsal is noted distally. No soft tissue abnormality is seen. IMPRESSION: No acute fracture is definitely seen. There is lucency about the second metatarsal which may represen t osteomyelitis as edema was seen on prior MRI. Clinical correlation is recommended. ACT 112: Negative or not required by law. Electronically signed by: Dwight Orourke M.D. 04/14/2024 7:16 PM
[2024-04-14] MEDS: TAMSULOSIN HCL 0.4 MG CAP PO SCH (19:57)
[2024-04-14] MEDS: MELATONIN 3 MG TAB PO SCH (19:57)
[2024-04-14] MEDS: ATORVASTATIN 40 MG TAB PO SCH (19:57)
[2024-04-14] MEDS: clonazePAM 1 MG TAB PO PRN (20:27)
[2024-04-14] MEDS: diphenhydrAMINE 50 MG/ML VIAL IV STA (20:27)
[2024-04-15 06:07] LABS: Creatinine Clr Calc Pharmacy 74.4 ml/min; Est GFR (African American) 78.4 ml/min; Est GFR (Non-African American) 67.6 ml/min
--- NOTE | 2024-04-15 09:39 | Pharmacy Report ---
Pharmacy PK ABX Note - Date of Service April 15, 2024 - Assessment and Plan Assessment 04/15: * Random vancomycin level this AM 9.7 mcg/ml - Scr improving more today, will start maintenance dose of vancomycin 1250 mg iv q 12 hours. Foot MRI/xray concerning for potential osteomyelitis. 04/14: * 68 year old M receiving vancomycin for treatment of left foot ulcer. Pertinent microbiologic data includes: blood cultures pending. Plan Vancomycin * Will start maintenance dosing today, 1250 mg iv q 12 hours * Plan to obtain level in next 2-3 days if continued Pharmacy will continue to follow and will adjust dose/frequency as necessary. Thank you. Pharmacy has transitioned to AUC monitoring for vancomycin. AUC/KAILASH is the preferred PK/PD target and is associated with decreased risk of nephrotoxicity compared to traditional trough targets.
[2024-04-15 09:49] LABS: Hematocrit (blood only) 29.9 % (42.0-52.0); Hemoglobin 8.9 g/dl (14.0-18.0); Mean Corpuscular Hgb Conc 29.8 g/dL (32.0-36.0); Mean Platelet Volume 10.7 fL (9.4-12.4); Platelet Count 218 K/uL (130-400); RDW Coefficient of Variation 19.7 % (11.5-14.5); RDW Standard Deviation 59.7 fL (36.4-46.3); Red Blood Count 3.56 M/uL (4.70-6.10); White Blood Count 5.35 K/ul (4.8-10.8)
[2024-04-15 10:05] LABS: BUN Creatinine Ratio 17.5 (10-20); Calcium 9.2 mg/dl (8.6-10.3); Creatinine Clr Calc Pharmacy 80.9 ml/min; Est GFR (African American) 86.7 ml/min; Est GFR (Non-African American) 74.8 ml/min; Potassium 4.7 mmol/L (3.5-5.1)
--- NOTE | 2024-04-15 12:59 | Orthopedic Progress Note ---
Date of Service April 15, 2024 Assessment & Plan (1) Ulcer of foot: Plan: Left foot Ulcer, concern for 2nd Metatarsal Osteomyelitis Discussed Cx and patient does not want any surgery. Patient also insisted on repeating Blood Cx. Discussed starting broad spectrum Abx, like Vancomycin. Will likely need follow- up with ID in [place] for suppressive therapy. Continue with covering when ambulating. Warm peroxide:NS soaks Appreciate Wound Care Team Continue care per primary service. As patient does not want any surgery, will sign off. Admission and Anticipated Discharge Date Admission Date: April 13, 2024 Physical Exam Physical Exam: LLE: Sensation to light touch is unchanged. BCR < 2sec to the remaining toes. Is able to wiggle toes and ankle. No swelling or erythema. There is dry skin along the ball of the foot. There is an Ulcer over the 4th Metatarsal approximately the size of a quarter. There is no drainage. No palpable fluctuance. Results & Data Vital Signs (Past 12 Hours) Vital Signs Temp Pulse Resp BP Pulse Ox O2 Del Method 04/15/24 07:49 37.5 C 62 18 115/68 97 Room Air
--- NOTE | 2024-04-15 13:03 | Hospitalist Progress Note ---
Date of Service April 15, 2024 Assessment & Plan (1) Ulcer of foot: Plan: Patient reports he has history of Buerger's Disease causing his foot ulcerations, multiple amputations in the past. He is concerned for infection of left foot ulcer. Normal WBC count, normal procalcitonin level, normal CRP No fever Wound does not appear infected to me Wound care consulted Podiatry consulted however there is no podiatry service available. Orthopedics on board MRI foot showed moderate edema in the second metatarsal head which could be fracture versus osteomyelitis Orthopedics obtained wound culture Blood culture drawn Started the patient on IV vancomycin Follow-up on the cultures (2) HTN (hypertension): Plan: Patient hypotensive on arrival. Now improved following IVF -Continue to hold Amlodipine, Lisinopril and Atenolol at least until blood pressure starts to creep up -Monitor (3) ARNOL (acute kidney injury): Plan: -Decreased Gabapentin from 400mg po TID to 200mg po TID -Resolved -Avoid nephrotoxic agents Plan Hyperlipidemia - chronic -Continue Atorvastatin Anxiety - chronic -Continue Clonazepam PRN anxiety with caution - can induce delirium Seizures -Continue Keppra 500mg po BID BPH -Continue Proscar and Flomax Consult PT and OT Admission and Anticipated Discharge Date Admission Date: April 13, 2024 Subjective Patient feels well overall. Denies chest pain or shortness of breath. Review of Systems Review of Systems: All systems reviewed & are unremarkable except as noted in Subjective Physical Exam Physical Exam: General: Awake, conversant Heart: S1, S2/regular rate and rhythm, no murmur rubs or gallops Lungs: Clear to auscultation bilaterally. Normal effort Abdomen: Soft/nontender/nondistended. No hepatosplenomegaly Extremities: No clubbing/cyanosis. No edema. Shallow scabbed lesion on the plantar surface of the left foot. With no purulence, fluctuance, bogginess. Behavior: Appropriate, cooperative Results & Data Results & Data Vital Signs (Past 12 Hours) Vital Signs Temp Pulse Resp BP Pulse Ox O2 Del Method 04/15/24 07:49 37.5 C 62 18 115/68 97 Room Air Laboratory Results Abnormal lab results 04/14/24 04/14/24 04/15/24 Range/Units 17:07 20:55 05:25 RBC (4.70-6.10) M/uL Hgb (14.0-18.0) g/dl Hct (42.0-52.0) % MCHC (32.0-36.0) g/dL RDW Std Deviation (36.4-46.3) fL RDW Coeff of Adebayo (11.5-14.5) % Chloride (98-107) mmol/L Glucose (70-99(Fasting)) mg/dl POC Glucose 102 H 124 H (70-99) mg/dl Random Vancomycin 9.7 L (10-20) mcg/ml 04/15/24 04/15/24 Range/Units 07:47 09:28 RBC 3.56 L (4.70-6.10) M/uL Hgb 8.9 L (14.0-18.0) g/dl Hct 29.9 L (42.0-52.0) % MCHC 29.8 L (32.0-36.0) g/dL RDW Std Deviation 59.7 H (36.4-46.3) fL RDW Coeff of Adebayo 19.7 H (11.5-14.5) % Chloride 108 H (98-107) mmol/L Glucose 157 H (70-99(Fasting)) mg/dl POC Glucose 163 H (70-99) mg/dl Random Vancomycin (10-20) mcg/ml Diagnostic Findings Foot X-Ray 04/14/24 17:10 XR foot LT min 3V routine CLINICAL HISTORY: Fracture TECHNIQUE: 3 views of the right foot were obtained. Comparison: Comparison is made to MRI left foot 04/14/2024 FINDINGS: No fractures are present. Lucency in the left metatarsal head is seen. Chronic appearing deformity of the first metatarsal is noted distally. No soft tissue abnormality is seen. IMPRESSION: No acute fracture is definitely seen. There is lucency about the second metat arsal which may represent osteomyelitis as edema was seen on prior MRI. Clinical correlation is recommended. ACT 112: Negative or not required by law. Electronically signed by: Dwight Orourke M.D. 04/14/2024 7:16 PM PG Care Time/CCT Total # of Minutes Spent Total Time Spent with Patient: Total time spent is greater than 50% in coordination of care (as documented) at patient's floor/unit and/or counseling patient: Coding Level of Care Code 34144 SUB INP/OBS CARE 35MIN Diagnoses Ulcer of foot L97.509 HTN (hypertension) I10 ARNOL (acute kidney injury) N17.9
[2024-04-15] MEDS: VANCOMYCIN HCL 1,250 MG in SODIUM CHLORIDE 0.9% 250 ML IV SCH (13:13)
[2024-04-15 20:40] VITALS: RESP 16
[2024-04-15] MEDS ORDERED: clonazePAM 0.5 MG TAB PO PRN (21:15)
[2024-04-15] MEDS: diphenhydrAMINE Capsule 25 MG CAP PO ONE (21:29)
[2024-04-16 07:41] VITALS: BP 125/72; TEMP 98.6; O2SAT 98
[2024-04-16 08:21] LABS: Creatinine Clr Calc Pharmacy 91.6 ml/min; Est GFR (African American) 100.7 ml/min; Est GFR (Non-African American) 86.9 ml/min
[2024-04-16] MEDS: ASPIRIN 81 MG ECTAB PO SCH (08:32)
[2024-04-16] MEDS: ATENOLOL 50 MG TABLET PO SCH (08:35)
[2024-04-16] MEDS: DOXYCYCLINE HYCLATE 100 MG CAP PO SCH (13:12)
[2024-04-16] MEDS: PHENAZOPYRIDINE HCL 200 MG TAB PO STA (13:13)
[2024-04-16 13:58] VITALS: PULSE 70
--- NOTE | 2024-04-16 14:38 | Discharge Summary ---
Date of Service April 16, 2024 Admission HPI Per Admitting Provider Abby Jay is a 68yo male with history of HTN, Polyneuropathy and Buerger's disease (I believe this is self diagnosed) presenting with weakness, ambulatory dysfunction and decreased blood pressure. Patient was recently admitted to [facility] when he presented with acute hypoxic respiratory failure and septic shock secondary to Covid-19, possible MRSA PNA. (Requesting records). He was ultimately discharged to [facility]. He has had some generalized weakness and ambulatory dysfunction that started on 04/13/24 around 14:00. Has some ulcers on his left foot. He reports that a couple of days ago he cleaned the ulcer with hydrogen peroxide and debrided it himself. He denies fever, chills, cough, SOB, abdominal pain, nausea, vomiting He has chronic diarrhea which is stable Some poor appetite and decreased oral intake Patient requested multiple times that his foot ulcer be cultured - requested this of ER nurse, ER Provider as well as myself multiple times. The wound is not purulent. Admission Exam Per Admitting Provider General: patient chronically ill in appearance, oriented x 3 Skin: warm, dry, intact, no rashes or lesions, eschar on right cheek HEENT: NC/AT, PERRL, EOMI, anicteric sclera, conjunctiva without injection, external ear normal to inspection and nontender, nares patent, drymucus membranes, dentition intact, no oropharyngeal lesions, neck supple, trachea midline, no LAD, no thyromegaly, no JVD Heart: +S1/S2, regular, no m/r/g Lungs: equal air entry bilaterally, no rales/rhonchi/wheezes Abd: +BS, soft, NT/ND, no masses/organomegaly/ascites Ext: warm, 2+ pulses in UE/LE bilaterally, no clubbing/cyanosis or edema Neuro: nonfocal, patient AA&O x 4, speech intact, no facial droop, moving all extremities on command with equal strength 5/5 shallow based lesion on dorsal surface of left foot, no bleeding/drainage, no purulence, no fluctuance, area palpated with no expressible fluid Principal Diagnosis Hypotension due to dehydration and possibly overmedication. Discharge Exam General: Awake, conversant Heart: S1, S2/regular rate and rhythm, no murmur rubs or gallops Lungs: Clear to auscultation bilaterally. Normal effort Abdomen: Soft/nontender/nondistended. No hepatosplenomegaly Extremities: No clubbing/cyanosis. No edema. Shallow scabbed lesion on the plantar surface of the left foot. With no purulence, fluctuance, bogginess. 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 He is concerned for infection of left foot ulcer. Normal WBC count, normal procalcitonin level, normal CRP No fever Wound does not appear infected to me Wound care consulted Podiatry consulted however there is no podiatry service available. Orthopedics on board MRI foot showed moderate edema in the second metatarsal head which could be fracture versus osteomyelitis Orthopedics obtained wound culture. Wound culture growing Staphylococcus, sensitivities not available yet. This will need to be followed up on by PCP. Spoke to Dr. Valero who will follow-up on this Blood culture negative for 24 hours Patient was initially started on IV vancomycin to treat potential osteomyelitis given MRI findings. Now that blood cultures negative, will discontinue vancomycin and switch to p.o. doxycycline to treat the skin and soft tissue infection especially in the absence of elevated white count, procalcitonin, lactic acid, CRP, fever. (2) HTN (hypertension): Patient hypotensive on arrival. Now improved following IVF Patient was most likely hypotensive because of dehydration and possibly overmedication. Patient lost significant amount of weight in the last few months and he is now on too many medications. Resumed atenolol Keep amlodipine and lisinopril on hold. -Monitor (3) ARNOL (acute kidney injury): Secondary to dehydration and hypotension -Resolved -Avoid nephrotoxic agents Plan Hyperlipidemia - chronic -Continue Atorvastatin Anxiety - chronic -Continue Clonazepam PRN anxiety with caution - can induce delirium Seizures -Continue Keppra 500mg po BID BPH -Continue Proscar and Flomax Consult PT and OT Total Time Total Time Spent Total Time Spent (In Minutes): 35 Discharge Plan Discharge Items Patient Disposition: Transfer Inpatient Rehab Fac Reason For Visit: HYPOTENSION, WEAKNESS Discharge Diagnosis: Hypotension due to dehydration and possibly overmedication. Activity: Resume your previous activity Non-emergency contact: Primary Care Provider Call non-emergency contact if: you have any medication questions and your symptoms worsen Follow-up/Referrals: Anjum Still MD [Primary Care Provider] - Diet: Carb Consistent or DM2 and Heart Healthy Addtl Attending Provider Instructions: Advised to follow-up with PCP in 1 week The superficial wound culture is growing Staphylococcus which may be a skin contaminant. The sensitivities will need to be followed up on by your PCP. You are being discharged on doxycycline Pending Studies at Discharge: Yes Studies:: Wound culture sensitivities Stand-Alone Forms: My [facility] Skilled Items Patient informed of condition?: Yes DNR: No Discharge Level of Care: Acute rehab Communicable Disease: No Discharge Prognosis: Stable Lines: None Urinary Catheter: No Medications and DC Order Prescriptions: New doxycycline hyclate 100 mg Capsule 100 mg PO BID 7 Days Qty: 14 0RF Continued atenolol 50 mg tablet 50 mg PO DAILY Qty: 30 2RF venlafaxine [Effexor XR] 150 mg capsule,extended release 24hr 150 mg PO DAILY Qty: 30 2RF (DME) Manual Wheelchair Device See Rx Instructions .Route Qty: 1 0RF Rx Instructions: As directed clonazepam 2 mg tablet 1 mg PO TID PRN (Reason: Anxiety) atorvastatin 80 mg tablet 80 mg PO HS metformin 500 mg tablet extended release 24 hr 1,000 mg PO BIDM finasteride 5 mg tablet 5 mg PO DAILY cyclobenzaprine 10 mg tablet 10 mg PO Q8 PRN (Reason: muscle spasm) gabapentin 400 mg Capsule 400 mg PO Q8 heparin (porcine) 5,000 unit/mL Syringe 5,000 unit SUBCUT Q8H quetiapine [Seroquel] 50 mg Tablet 50 mg PO Q12 levetiracetam 500 mg Tablet 500 mg PO Q12H pantoprazole 40 mg Tablet,Delayed Release (Dr/Ec) 40 mg PO DAILYBB dextroamphetamine-amphetamine 30 mg tablet 30 mg PO DAILY tamsulosin 0.4 mg capsule 0.4 mg PO HS docusate sodium 100 mg Capsule 100 mg PO BID melatonin 3 mg Tablet 6 mg PO HS Held lisinopril 20 mg tablet 20 mg PO DAILY Hold Instructions: Resume on 04/30/24. Or until okayed by PCP amlodipine 5 mg Tablet 5 mg PO DAILY Hold Instructions: Resume on 04/30/24. Or until okayed by PCP Discharge Orders: Discharge Order (Routine); Ordered 04/16/24 Ordered By: Dexter Dave/Other Patient Handouts: Wound Care Admission Data Admit Date/Time: 04/15/24 09:27 Attending Provider: Dexter Bowers Admit Provider: Dexter Bowers Primary Care Provider: Anjum Still Other Providers: Patience Del Rio; [facility]; Sacha Case Other Interventions: Discharge Summary Assessment (RN) Last Done: 04/16/24 13:55
== END 2024-04-16 14:22 | DRG 315 ==
LOC: 3N 19:38 → ED 19:38 → SUATTDRO 23:11 → 3N 04-14 01:08